=== PATIENT | male | born 1960 | race Caucasian/White ===

== ENCOUNTER 2018-02-12 11:00 | Outpatient (RCR) ==
[2015-07-18 12:18] VITALS: BMI 27.4
--- NOTE | 2018-01-29 14:26 | RS.OPPTEV2 ---
Date of Note: 01/29/18 Visit #: 1 Date of Evaluation: 01/29/18 Payer Source: MEDICARE Treatment Diagnosis: Neck pain History of Condition/Mechanism of Injury:: Patient has a history that includes two neck surgeries. States he has had ongoing neck pain that has progressed over the last three years to the point that he is sore and tender 24 hours a day. He has been attending Pain Management for years. Prior Level of Function.....Patient was independent with: ADL's, Self Care, Ambulation/Mobility, Community Integration/Access Functional Limitations: Sleep, Self Care, ADL's, Reaching, Pushing, Pulling, Lifting, Carrying, Sitting, Bending Current Subjective/complaints:: Patient reports constant neck pain. States pain is mainly across the base of the neck and up the spine. Reports he also has daily headaches. He received trigger point injections last week in the neck and upper traps. States he is unable to tell any difference yet from the injections. States he had injections before and could not tell any benefit. Reports neck pain is increased with activities such as driving, reaching, lifting, ADL's, reading. Reports decreased neck motion, especially to his left. States driving is difficult due to pain and neck stiffness. States to look to his left, he often has to turn his whole body. Report noticing some shakiness in the left hand and sometimes drops things. He is left hand dominant. Reports he occasionally has tingling in his scalp and neck. States "It feels like ants crawling around". States his fingers go numb sometimes while driving. Describes limited sleep due to neck, back, and sciatic nerve pain. States he usually gets 2-3 hours of sleep a night. *Precautions: *Medtronic Stimulation System implant* Medical History Medical History: Hypertension, Arthritis Surgical History: Cervical Spine Surgical History Comments:: Right shoulder surgery X 2, stimulator for pain control March 2015, Cervical spine surgery 2 disc replaced 2007, fusion with metal implant 2013 or 2014. Smoking Status: Former smoker Hx Home Medications: Perocet Patient's Goals: His goal is to get some relief of neck pain. Pain Assessment - Pain Description Pain Location: neck Pain Description: Aching Pain Description: soreness, tender Current Pain Intensity: 4/10 Worst Pain Intensity: 8/10 Functional Outcome Measure Neck Disability Index: 64 - G Codes & Severity Modifier G Codes & Modifier: body position current CL. body position goal CJ Source of G Code score: Neck Disability Index Observation - Observation Inspection: Demonstrates well healed incision to posterior cervical spine. Posture: Forward Head, Rounded Shoulders, Scapula Asymmetry (left scapula elevated), Decreased Cervical Lordosis Handedness: Left - ROM Cervical Spine Range of Motion Limitations: Soft Tissue Tightness, Pain Comments: Cervical extension is approximately 25% of normal range, flexion is WFL's. Rotation to the left 35-40 degrees, to the right 55-60 degrees. Patient reports pain with endrange extension and rotation bilaterally. UE AROM is WFL's with discomfort felt in the neck with ROM above shoulder height. - Strength Cervical Extension: 4 Good Cervical Flexion: 4 Good Cervical Lateral Flexion: 4 Good Comments: UE strength: right UE shoulder 4 to 4+/5, elbow 5/5, wrist 5/5. Left UE shoulder 4+/5, elbow 5/5, wrist extension 4+/5. - Special Tests Foraminal Compression: Negative Left, Negative Right VA Test: Negative Energy Conservation Representative Strength Left Hand Energy Conservation Representative Strength: 50 lbs. Right Hand Energy Conservation Representative Strength: 57 lbs. Dynamometer Testing Position: 2nd Position Palpation Comments:: Moderate increased muscle tone along left upper traps and bilateral SCM at the most superior aspect. Reports tenderness with palpation to the left upper traps and left scalenes. Sensation - Sensation Right Upper Extremity: Intact/Normal Left Upper Extremity: Intact/Normal Additional Comments: Additional Comments: Pec major tight bilaterally. Interventions - Exercise/Activities/Manual Therapy Exercises/Activities: Patient instructed in [facility] to start this weekend of corner stretch (pec stretch), gentle stretching into lateral flexion and rotation. Manual Therapy: NA HOME EXERCISE PROGRAM: corner stretch (pec stretch), gentle stretching into lateral flexion and rotation. - Charges Timed Code Treatment Minutes: 0 Total Treatment Time: 50 mins Procedures billed for this date of service:: EVAL Medium EVALUATION COMPLEXITY LEVEL EVALUATION COMPLEXITY LEVEL: HISTORY: Medium (previous neck sx X2, Hx back pain with stimulator), EXAM OF BODY SYSTEMS: Medium (limited sleep, driving, ADL's), CLINICAL PRESENTATION: Medium, CLINICAL DECISION MAKING: Medium Assessment Assessment: Patient presents to therapy with a diagnosis of neck pain. He reports neck pain that has progressed to the point of being constant. Also reports daily headaches. He exhibits moderate increased muscle tone along the left upper traps and bilateral SCM. AROM is limited to cervical extension and rotation. He reports difficulty sleeping, driving, reading, performing ADL's due to increased neck pain and or limited ROM. He demonstrates potential to benefit from manual therapy, stretching, and postural strengthening and education to reduce his symptoms and improve his tolerance for daily activities. Patient Education: Education of diagnosis, Body/Joint mechanics, Home Exercise Program, Home Safety, Activity Modification, Education of Plan of Care Rehab Potential: Good Short Term Goals Goal #1: Patient independent and compliant with basic HEP. Goal to be met by: 02/12/18 Goal #2: Muscle tone along left upper traps decreased to minimal. Goal to be met by: 02/12/18 Goal #3: Left cervical rotation improved to 45-50 degrees. Goal to be met by: 02/12/18 Goal #4: Headaches decreased to less than daily. Goal to be met by: 02/12/18 Alf Goals Goal #1: Pt knows HEP and to continue exercises after D/C from therapy. Goal to be met by: 03/10/18 Goal #2: Score on Neck Disability Index improved to 39% or less. Goal to be met by: 03/10/18 (SCORE 60) Goal #3: Cervical rotation improved to enable pt to drive with minimal difficulty. Goal to be met by: 03/10/18 Goal #4: Pt to report neck pain to average 5/10 with daily activities. Goal to be met by: 03/10/18 Plan - Treatment to be Provided Procedures: Therapeutic Exercises, Therapeutic Activity, Manual Therapy, Patient Education Modalities: Cryotherapy, Hot Packs - Treatment Plan Frequency: 3 X week Duration: 4 weeks ORDER # VISITS AND/OR THROUGH DATE: 03/10/18 - Treatment Code (1) Neck pain Code(s): M54.2 - CERVICALGIA Comments: M54.2 (2) Other muscle spasm Code(s): M62.838 - OTHER MUSCLE SPASM Comments: M62.838 Muscle spasms of left upper traps and SCM
--- NOTE | 2018-02-01 13:25 | RS.OPPTDN ---
Subjective Date of Note: 02/01/18 Visit #: 2 Date of Evaluation: 01/29/18 Payer Source: MEDICARE Treatment Diagnosis: Neck pain Current Subjective/complaints:: Patient says he has daily HAs. He says his pain is 3-4/10 with percocet 10mg. He reports that he has not tried any heat/ cold with HAs, but feels percocet should help. *Precautions: *Medtronic Stimulation System implant* - Heat/Cryotherapy Treatment: Hot Pack (20 mins cervical supine) Interventions - Exercise/Activities/Manual Therapy Exercises/Activities: Gentle stretching for SB and rotation bilaterally. Patient sits at EOB for shoulder shrugs, scap adduction, and red tband for scap retraction x 10. Patient encouraged to perform improved postural mechanics for home. Total minutes of Exercise: 8 Manual Therapy: Patient receives DTM and Trigger point work to bilateral UT. Also, occipital release. Total minutes of Manual Therapy: 15 HOME EXERCISE PROGRAM: corner stretch (pec stretch), gentle stretching into lateral flexion and rotation. - Charges Timed Code Treatment Minutes: 23 Total Treatment Time: 43 Procedures billed for this date of service:: hp, MT, EX Assessment: Patient presents with mild tenderness and soreness to the bilateral UT with 2 trigger points (1 to each side). He is able to darion and demo ROM passively SB and rotation WFL and with only slight discomfort. He is able to begin light postural strengthening without difficulty. He may benefit from receiving manual therapy and postural strengthening to decrease his pain. Patient Education: Education of diagnosis, Body/Joint mechanics, Home Exercise Program, Education of Plan of Care Short Term Goals Goal #1: Patient independent and compliant with basic HEP. Goal to be met by: 02/12/18 Goal #2: Muscle tone along left upper traps decreased to minimal. Goal to be met by: 02/12/18 Goal #3: Left cervical rotation improved to 45-50 degrees. Goal to be met by: 02/12/18 Goal #4: Headaches decreased to less than daily. Goal to be met by: 02/12/18 Longterm Goals Goal #1: Pt knows HEP and to continue exercises after D/C from therapy. Goal to be met by: 03/10/18 Goal #2: Score on Neck Disability Index improved to 39% or less. Goal to be met by: 03/10/18 (SCORE 60) Goal #3: Cervical rotation improved to enable pt to drive with minimal difficulty. Goal to be met by: 03/10/18 Goal #4: Pt to report neck pain to average 5/10 with daily activities. Goal to be met by: 03/10/18 Plan PLAN OF CARE EXPIRES ON:: 03/10/18 ORDER # VISITS AND/OR THROUGH DATE: 03/10/18 PLAN: TIW to reduce neck pain and PEREZ's
--- NOTE | 2018-02-03 13:08 | RS.OPPTDN ---
Subjective Date of Note: 02/03/18 Visit #: 3 Date of Evaluation: 01/29/18 Payer Source: MEDICARE Treatment Diagnosis: Neck pain Current Subjective/complaints:: Patient says his pain is less. Reports he feels his neck is able to move better than previous session. He denies PEREZ this morning. *Precautions: *Medtronic Stimulation System implant* Pain Assessment - Pain Description Pain Location: tender and tight Pain Description: Tightness, Throbbing - Heat/Cryotherapy Treatment: Hot Pack (20 mins cervical in supine) Interventions - Exercise/Activities/Manual Therapy Exercises/Activities: Gentle stretching for SB and rotation bilaterally. Patient sits at EOB for shoulder shrugs, scap adduction, and red tband for scap retraction, standing bilateral shoulder extension, and bilateral ER x 10. Patient encouraged to perform improved postural mechanics for home. Total minutes of Exercise: 16 Manual Therapy: Patient receives DTM and Trigger point work to bilateral UT. Also, occipital release multiple reps. Total minutes of Manual Therapy: 15 HOME EXERCISE PROGRAM: corner stretch (pec stretch), gentle stretching into lateral flexion and rotation. - Charges Timed Code Treatment Minutes: 31 Total Treatment Time: 51 Procedures billed for this date of service:: hp, mt, ex Assessment: Patient expresses increased flexibility and less tightness/ tenderness to bilateral UT and cervical paraspinals. Patient able to darion progressive postural strengthening and has no presence of PEREZ today. Patient Education: Education of diagnosis, Body/Joint mechanics, Home Exercise Program Patient demonstrates compliance with HEP?: Yes Short Term Goals Goal #1: Patient independent and compliant with basic HEP. Goal to be met by: 02/12/18 Progress towards Goal:: Progressing Goal #2: Muscle tone along left upper traps decreased to minimal. Goal to be met by: 02/12/18 Progress towards Goal:: Progressing Goal #3: Left cervical rotation improved to 45-50 degrees. Goal to be met by: 02/12/18 Progress towards Goal:: Progressing Goal #4: Headaches decreased to less than daily. Goal to be met by: 02/12/18 Group Home Goals Goal #1: Pt knows HEP and to continue exercises after D/C from therapy. Goal to be met by: 03/10/18 Goal #2: Score on Neck Disability Index improved to 39% or less. Goal to be met by: 03/10/18 (SCORE 60) Goal #3: Cervical rotation improved to enable pt to drive with minimal difficulty. Goal to be met by: 03/10/18 Goal #4: Pt to report neck pain to average 5/10 with daily activities. Goal to be met by: 03/10/18 Plan PLAN OF CARE EXPIRES ON:: 03/10/18 ORDER # VISITS AND/OR THROUGH DATE: 03/10/18 PLAN: BIW for decreased neck pain and improved mobility.
--- NOTE | 2018-02-05 14:03 | RS.OPPTDN ---
Subjective Date of Note: 02/05/18 Visit #: 4 Date of Evaluation: 01/29/18 Payer Source: MEDICARE Treatment Diagnosis: Neck pain Current Subjective/complaints:: Patient c/o PEREZ today. He says he does feel his neck mobility is improving, but pain just fluctuates due to history of surgical procedures. *Precautions: *Medtronic Stimulation System implant* - Heat/Cryotherapy Treatment: Hot Pack (cervical x 20 mins in supine) Interventions - Exercise/Activities/Manual Therapy Exercises/Activities: Gentle stretching for SB and rotation bilaterally. Patient sits at EOB for shoulder shrugs, scap adduction, isometric neck retraction and R SB 2x5. Total minutes of Exercise: 6 Manual Therapy: Patient receives DTM and Trigger point work to bilateral UT. Also, occipital release multiple reps. Total minutes of Manual Therapy: 16 HOME EXERCISE PROGRAM: corner stretch (pec stretch), gentle stretching into lateral flexion and rotation. - Charges Timed Code Treatment Minutes: 21 Total Treatment Time: 41 Procedures billed for this date of service:: hp, MT Assessment: Patient presenting with PEREZ today, but does admit improved flexibility to the neck. He demo less tenderness with moderate palpation through MT today and admits improved pain at end of session today. Patient Education: Body/Joint mechanics, Home Exercise Program, Education of Plan of Care Patient demonstrates compliance with HEP?: Yes Short Term Goals Goal #1: Patient independent and compliant with basic HEP. Goal to be met by: 02/12/18 Progress towards Goal:: Progressing Goal #2: Muscle tone along left upper traps decreased to minimal. Goal to be met by: 02/12/18 Progress towards Goal:: Progressing Goal #3: Left cervical rotation improved to 45-50 degrees. Goal to be met by: 02/12/18 Progress towards Goal:: Progressing Goal #4: Headaches decreased to less than daily. Goal to be met by: 02/12/18 Motor Polarizer Goals Goal #1: Pt knows HEP and to continue exercises after D/C from therapy. Goal to be met by: 03/10/18 Goal #2: Score on Neck Disability Index improved to 39% or less. Goal to be met by: 03/10/18 (SCORE 60) Goal #3: Cervical rotation improved to enable pt to drive with minimal difficulty. Goal to be met by: 03/10/18 Goal #4: Pt to report neck pain to average 5/10 with daily activities. Goal to be met by: 03/10/18 Plan PLAN OF CARE EXPIRES ON:: 03/10/18 ORDER # VISITS AND/OR THROUGH DATE: 03/10/18 PLAN: Patient to continue TIW for heat, MT, and therex to the cspine
--- NOTE | 2018-02-08 13:29 | RS.OPPTDN ---
Subjective Date of Note: 02/08/18 Visit #: 5 Date of Evaluation: 01/29/18 Payer Source: MEDICARE Treatment Diagnosis: Neck pain Current Subjective/complaints:: Patient states he feels that he is able to turn his head better. States he does not know why his neck stays so sore and tense. *Precautions: *Medtronic Stimulation System implant* - Heat/Cryotherapy Treatment: Hot Pack (X 20 mins cervical spine) Interventions - Exercise/Activities/Manual Therapy Exercises/Activities: Gentle stretching for SB . Performs scapular retraction with green theraband 15 reps. Total minutes of Exercise: 5 mins Manual Therapy: Patient receives DTM and Trigger point work to bilateral UT. Demonstrates active trigger points along the superior border of the scapula bilaterally. Also received occipital release in supine X 10 mins. Total minutes of Manual Therapy: total 26 mins HOME EXERCISE PROGRAM: corner stretch (pec stretch), gentle stretching into lateral flexion and rotation. - Charges Timed Code Treatment Minutes: 31 mins Total Treatment Time: 51 mins Procedures billed for this date of service:: hp, manual therapy, ex Assessment: Patient with subjective reports of improved cervical rotation. Demonstrates significant muscle guarding and active trigger points in bilateral upper traps. Patient Education: Body/Joint mechanics, Home Exercise Program, Activity Modification Patient demonstrates compliance with HEP?: Yes Short Term Goals Goal #1: Patient independent and compliant with basic HEP. Goal to be met by: 02/12/18 Progress towards Goal:: Progressing Goal #2: Muscle tone along left upper traps decreased to minimal. Goal to be met by: 02/12/18 Progress towards Goal:: Progressing Goal #3: Left cervical rotation improved to 45-50 degrees. Goal to be met by: 02/12/18 Progress towards Goal:: Progressing Goal #4: Headaches decreased to less than daily. Goal to be met by: 02/12/18 Biomedical Engineering Technologist Goals Goal #1: Pt knows HEP and to continue exercises after D/C from therapy. Goal to be met by: 03/10/18 Goal #2: Score on Neck Disability Index improved to 39% or less. Goal to be met by: 03/10/18 (SCORE 60) Goal #3: Cervical rotation improved to enable pt to drive with minimal difficulty. Goal to be met by: 03/10/18 Goal #4: Pt to report neck pain to average 5/10 with daily activities. Goal to be met by: 03/10/18 Plan PLAN OF CARE EXPIRES ON:: 03/10/18 ORDER # VISITS AND/OR THROUGH DATE: 03/10/18 PLAN: progress stretching and stability exercises.
--- NOTE | 2018-02-10 16:21 | RS.OPPTDN ---
Subjective Date of Note: 02/10/18 Visit #: 6 Date of Evaluation: 01/29/18 Payer Source: MEDICARE Treatment Diagnosis: Neck pain Current Subjective/complaints:: Patient says his neck pain is slightly elevated today based on the continued damp weather. He says he does not have a PEREZ presently, but later in the treatment says he may be starting to get a PEREZ. He says he does feel better when he leaves therapy. *Precautions: *Medtronic Stimulation System implant* - Heat/Cryotherapy Treatment: Hot Pack (cervical and upper back in supine x 20 mins) Interventions - Exercise/Activities/Manual Therapy Exercises/Activities: Gentle stretching for SB . Performs scapular retraction with green theraband 15 reps. Cervical retraction isometrics, L and R SB isometrics x 5. Shoulder shrugs x 10. Total minutes of Exercise: 8 Manual Therapy: Patient receives DTM and Trigger point work to bilateral UT. Demonstrates active trigger points along the superior border of the scapula bilaterally. Also received occipital release in supine X 10 mins. Total minutes of Manual Therapy: 16 HOME EXERCISE PROGRAM: corner stretch (pec stretch), gentle stretching into lateral flexion and rotation. - Charges Timed Code Treatment Minutes: 24 Total Treatment Time: 44 Procedures billed for this date of service:: hp, ex, MT Assessment: Patient progressing with slightly reduced neck pain with treatment today, but later did develop light PEREZ. Patient feels symptoms today are related to damp weather. Patient demo improved Cspine ROM to R SB and rotation following MT today. Patient Education: Education of diagnosis, Body/Joint mechanics, Home Exercise Program, Education of Plan of Care Patient demonstrates compliance with HEP?: Yes Short Term Goals Goal #1: Patient independent and compliant with basic HEP. Goal to be met by: 02/12/18 Progress towards Goal:: Progressing Goal #2: Muscle tone along left upper traps decreased to minimal. Goal to be met by: 02/12/18 Progress towards Goal:: Progressing Goal #3: Left cervical rotation improved to 45-50 degrees. Goal to be met by: 02/12/18 Progress towards Goal:: Progressing Goal #4: Headaches decreased to less than daily. Goal to be met by: 02/12/[address] Goals Goal #1: Pt knows HEP and to continue exercises after D/C from therapy. Goal to be met by: 03/10/18 Goal #2: Score on Neck Disability Index improved to 39% or less. Goal to be met by: 03/10/18 (SCORE 60) Goal #3: Cervical rotation improved to enable pt to drive with minimal difficulty. Goal to be met by: 03/10/18 Goal #4: Pt to report neck pain to average 5/10 with daily activities. Goal to be met by: 03/10/18 Plan PLAN OF CARE EXPIRES ON:: 03/10/18 ORDER # VISITS AND/OR THROUGH DATE: 03/10/18 PLAN: Patient to attend TIW for MT/EX for the cervical spine
--- NOTE | 2018-02-12 16:40 | RS.OPPTDN ---
Subjective Date of Note: 02/12/18 Visit #: 7 Date of Evaluation: 01/29/18 Payer Source: MEDICARE Treatment Diagnosis: Neck pain Current Subjective/complaints:: Patient says his pain varies and continues with intermittent PEREZ, although he denies one today. He does say he is able to see significant change in mobility to his neck, especially with turning to the L. He reports being less tender to the R UT. *Precautions: *Medtronic Stimulation System implant* - Heat/Cryotherapy Treatment: Hot Pack (cervical x 20 mins supine) Interventions - Exercise/Activities/Manual Therapy Exercises/Activities: Gentle stretching for SB . Performs scapular retraction with green theraband 15 reps. 1# wand for bilateral shoulder flexion and R shoulder ABD x 10. Cervical retraction isometrics, L and R SB isometrics x 5. Shoulder shrugs x 10. Total minutes of Exercise: 14 Manual Therapy: Patient receives DTM and Trigger point work to bilateral UT. Demonstrates active trigger points along the superior border of the scapula bilaterally. Also received occipital release in supine X 12 mins. Total minutes of Manual Therapy: 12 HOME EXERCISE PROGRAM: corner stretch (pec stretch), gentle stretching into lateral flexion and rotation. - Charges Timed Code Treatment Minutes: 26 Total Treatment Time: 46 Procedures billed for this date of service:: hp, MT, EX Assessment: Patient demo improved L SB and Rotation compared to eval date with decreased tenderness to mod palpation during MT to the R UT. He continues with mild to moderate pain and intermittent HAs, but does admit general improvement from PT. Patient Education: Body/Joint mechanics, Home Exercise Program, Education of Plan of Care Patient demonstrates compliance with HEP?: Yes Short Term Goals Goal #1: Patient independent and compliant with basic HEP. Goal to be met by: 02/12/18 Progress towards Goal:: Progressing Goal #2: Muscle tone along left upper traps decreased to minimal. Goal to be met by: 02/12/18 Progress towards Goal:: Progressing Goal #3: Left cervical rotation improved to 45-50 degrees. Goal to be met by: 02/12/18 Progress towards Goal:: Progressing Goal #4: Headaches decreased to less than daily. Goal to be met by: 02/12/18 Semiconductor Dies Loader Goals Goal #1: Pt knows HEP and to continue exercises after D/C from therapy. Goal to be met by: 03/10/18 Goal #2: Score on Neck Disability Index improved to 39% or less. Goal to be met by: 03/10/18 (SCORE 60) Goal #3: Cervical rotation improved to enable pt to drive with minimal difficulty. Goal to be met by: 03/10/18 Goal #4: Pt to report neck pain to average 5/10 with daily activities. Goal to be met by: 03/10/18 Plan PLAN OF CARE EXPIRES ON:: 03/10/18 ORDER # VISITS AND/OR THROUGH DATE: 03/10/18 PLAN: Patient to continue TIW for MT and therex to improve cervical ROM, muscle guarding, and pain.
== END 2018-02-13 ==
PROVIDERS: ATTEND Pain Medicine Interventional Pain Medicine
DX: M54.2 Cervicalgia (principal)

== ENCOUNTER 2018-03-05 11:00 | Outpatient (RCR) ==
[2015-07-18 12:18] VITALS: BMI 27.4
--- NOTE | 2018-02-15 12:21 | RS.OPPTDN ---
Subjective Date of Note: 02/15/18 Visit #: 8 Date of Evaluation: 01/29/18 Payer Source: MEDICARE Treatment Diagnosis: Neck pain Current Subjective/complaints:: Patient reports the therapy continues to help relieve the neck pain ,along with better cervical rotation to the L. *Precautions: *Medtronic Stimulation System implant* Pain Assessment - Pain Description Pain Description: Chronic - Heat/Cryotherapy Treatment: Hot Pack (20 mins. prior to exercises and manual therapy.) Interventions - Exercise/Activities/Manual Therapy Exercises/Activities: Ther ex. in supine for cervical rotation ,lateral flexion ,chin tucks,with static stretches at end range of each motion. Total minutes of Exercise: 15 Manual Therapy: Patient receives DTM and Trigger point work to bilateral UT. Demonstrates active trigger points along the superior border of the scapula bilaterally. Also received occipital release in supine X 15 mins. Total minutes of Manual Therapy: 15 HOME EXERCISE PROGRAM: corner stretch (pec stretch), gentle stretching into lateral flexion and rotation. - Charges Timed Code Treatment Minutes: 30 Total Treatment Time: 50 Procedures billed for this date of service:: hp,manual,ex Assessment: Patient reports improved flexibility ,but the cervical rotation continues to be the most difficult ,as compared to other motions.He has moderate tenderness present along the medial borders of scapulae. Patient Education: Education of diagnosis, Body/Joint mechanics, Home Exercise Program, Home Safety, Activity Modification, Education of Plan of Care Patient demonstrates compliance with HEP?: Yes Short Term Goals Goal #1: Patient independent and compliant with basic HEP. Goal to be met by: 02/12/18 Progress towards Goal:: Progressing Goal #2: Muscle tone along left upper traps decreased to minimal. Goal to be met by: 02/12/18 Progress towards Goal:: Progressing Goal #3: Left cervical rotation improved to 45-50 degrees. Goal to be met by: 02/12/18 Progress towards Goal:: Progressing Goal #4: Headaches decreased to less than daily. 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 Goal to be met by: 03/10/18 Progress towards goal: Progressing Goal #2: Score on Neck Disability Index improved to 39% or less. Goal to be met by: 03/10/18 (SCORE 60) Goal #3: Cervical rotation improved to enable pt to drive with minimal difficulty. Goal to be met by: 03/10/18 Goal #4: Pt to report neck pain to average 5/10 with daily activities. Goal to be met by: 03/10/18 Plan PLAN OF CARE EXPIRES ON:: 03/10/18 ORDER # VISITS AND/OR THROUGH DATE: 03/10/18 PLAN: Cont treatment to improve cervical ROM with less pain ,decrease frequency of headaches.
--- NOTE | 2018-02-17 12:56 | RS.OPPTDN ---
Subjective Date of Note: 02/17/18 Visit #: 9 Date of Evaluation: 01/29/18 Payer Source: MEDICARE Treatment Diagnosis: Neck pain Current Subjective/complaints:: Patient reports muscle soreness ,but no sharp pain present currently.The rotation to the L is generally more difficult than to the R. *Precautions: *Medtronic Stimulation System implant* Pain Assessment - Pain Description Pain Description: Tightness Pain Description: muscle soreness Current Pain Intensity: 4 - Heat/Cryotherapy Treatment: Hot Pack (20 mns. prior to exercises and manual therapy.) Interventions - Exercise/Activities/Manual Therapy Exercises/Activities: Ther ex. in supine for cervical rotation ,lateral flexion ,chin tucks,with static stretches at end range of each motion. Total minutes of Exercise: 15 Manual Therapy: Patient receives DTM and Trigger point work to bilateral UT. Demonstrates active trigger points along the superior border of the scapula bilaterally. Also received occipital release in supine . Total minutes of Manual Therapy: 15 HOME EXERCISE PROGRAM: corner stretch (pec stretch), gentle stretching into lateral flexion and rotation. - Charges Timed Code Treatment Minutes: 30 Total Treatment Time: 50 Procedures billed for this date of service:: hp,ex ,manual therapy Assessment: Patient has improved rotation to the L today after exercises,but requires more reps. of stretch to achieve the same motion as he has with R rotation.He reports less intensity of headaches,but they still occur daily.He is attentive to recommendations of the therapy staff. Patient Education: Body/Joint mechanics, Home Exercise Program, Education of Plan of Care Patient demonstrates compliance with HEP?: Yes Short Term Goals Goal #1: Patient independent and compliant with basic HEP. Goal to be met by: 02/12/18 Progress towards Goal:: Progressing Goal #2: Muscle tone along left upper traps decreased to minimal. Goal to be met by: 02/12/18 Progress towards Goal:: Progressing Goal #3: Left cervical rotation improved to 45-50 degrees. Goal to be met by: 02/12/18 Progress towards Goal:: Progressing Goal #4: Headaches decreased to less than daily. Goal to be met by: 02/12/18 (less intense,but still daily) Progress towards Goal:: Progressing (less severe at times) Custodial Goals Goal #1: Pt knows HEP and to continue exercises after D/C from therapy. Goal to be met by: 03/10/18 Progress towards goal: Progressing Goal #2: Score on Neck Disability Index improved to 39% or less. Goal to be met by: 03/10/18 (SCORE 60) Goal #3: Cervical rotation improved to enable pt to drive with minimal difficulty. Goal to be met by: 03/10/18 Goal #4: Pt to report neck pain to average 5/10 with daily activities. Goal to be met by: 03/10/18 Progress towards goal: Progressing Plan PLAN OF CARE EXPIRES ON:: 03/10/18 ORDER # VISITS AND/OR THROUGH DATE: 03/10/18 PLAN: Continue treatment to increase cervical ROM with less pain and less frequent of headaches.
--- NOTE | 2018-02-19 13:07 | RS.OPPTDN ---
Subjective Date of Note: 02/19/18 Visit #: 10 Date of Evaluation: 01/29/18 Payer Source: MEDICARE Treatment Diagnosis: Neck pain Current Subjective/complaints:: Patient pleased with his progress,feels the therapy is helping .He reports less intensity of headaches ,improved cervical rotation , also. *Precautions: *Medtronic Stimulation System implant* Pain Assessment - Pain Description Pain Location: cervical/UT's Pain Description: Chronic Pain Description: muscle soreness Current Pain Intensity: 2/10 Worst Pain Intensity: 4 two days ago - Heat/Cryotherapy Treatment: Hot Pack (20 mins. prior to exercise and manual therapy) Interventions - Exercise/Activities/Manual Therapy Exercises/Activities: Ther ex. in sitting for cervical rotation ,lateral flexion ,chin tucks,with static stretches at end range of each motion.ROM measurements taken today , also. Total minutes of Exercise: 15 Manual Therapy: Patient receives DTM and Trigger point work to bilateral UT. Demonstrates active trigger points along the superior border of the scapula bilaterally. Also received occipital release in supine . Total minutes of Manual Therapy: 25 HOME EXERCISE PROGRAM: corner stretch (pec stretch), gentle stretching into lateral flexion and rotation. - Charges Timed Code Treatment Minutes: 40 Total Treatment Time: 60 Procedures billed for this date of service:: hp,ex ,manual therapy 2 Assessment: Patient progressing ,has increased cervical motion with less pain, along with less intense headaches.He is compliant to HEP and recommendations for pain management. Patient Education: Body/Joint mechanics, Education of Plan of Care Patient demonstrates compliance with HEP?: Yes Short Term Goals Goal #1: Patient independent and compliant with basic HEP. Goal to be met by: 02/12/18 Progress towards Goal:: Partially Met Goal #2: Muscle tone along left upper traps decreased to minimal. Goal to be met by: 02/12/18 Progress towards Goal:: Progressing Goal #3: Left cervical rotation improved to 45-50 degrees. Goal to be met by: 02/12/18 Progress towards Goal:: Met Goal #4: Headaches decreased to less than daily. Goal to be met by: 02/12/18 (less intense,but still daily) Progress towards Goal:: Progressing (less severe at times) Intermediate Goals Goal #1: Pt knows HEP and to continue exercises after D/C from therapy. Goal to be met by: 03/10/18 Progress towards goal: Progressing Goal #2: Score on Neck Disability Index improved to 39% or less. Goal to be met by: 03/10/18 Progress towards goal: Progressing Goal #3: Cervical rotation improved to enable pt to drive with minimal difficulty. Goal to be met by: 03/10/18 Progress towards goal: Progressing Goal #4: Pt to report neck pain to average 5/10 with daily activities. Goal to be met by: 03/10/18 Progress towards goal: Progressing Plan PLAN OF CARE EXPIRES ON:: 03/10/18 ORDER # VISITS AND/OR THROUGH DATE: 03/10/18 PLAN: Continue PT to reduce frequency of headaches,improve cervical motion , especially rotation,enabling for him to drive with less discomfort.
--- NOTE | 2018-02-22 12:06 | RS.OPPTDN ---
Subjective Date of Note: 02/22/18 Visit #: 11 Date of Evaluation: 01/29/18 Payer Source: MEDICARE Treatment Diagnosis: Neck pain Current Subjective/complaints:: Patient reports less pain today,continues to feel the therapy is helping.His headaches have been , "very mild " the past couple of days. *Precautions: *Medtronic Stimulation System implant* Pain Assessment - Pain Description Pain Description: Dull Current Pain Intensity: 2 - Heat/Cryotherapy Treatment: Hot Pack (20 mins. to cervical prior to exercise and manual therapy) Interventions - Exercise/Activities/Manual Therapy Exercises/Activities: Ther ex. in supine for cervical rotation ,lateral flexion ,chin tucks,with static stretches at end range of each motion.Gentle manual distraction combined with occipital release . Total minutes of Exercise: 15 Manual Therapy: Patient receives DTM and Trigger point work to bilateral UT. Demonstrates active trigger points along the superior border of the scapula bilaterally. Also received occipital release in supine . Total minutes of Manual Therapy: 15 HOME EXERCISE PROGRAM: corner stretch (pec stretch), gentle stretching into lateral flexion and rotation. - Charges Timed Code Treatment Minutes: 30 Total Treatment Time: 50 Procedures billed for this date of service:: hp,ex, manual therapy Assessment: Patient continues to report less difficulty with cervical otion , especially with rotation to the L.He has less tenderness in the trigger points along the UT and medial borders of L scapula. Patient Education: Education of diagnosis, Body/Joint mechanics, Home Exercise Program, Home Safety, Activity Modification, Education of Plan of Care Patient demonstrates compliance with HEP?: Yes Short Term Goals Goal #1: Patient independent and compliant with basic HEP. Goal to be met by: 02/12/18 Progress towards Goal:: Partially Met Goal #2: Muscle tone along left upper traps decreased to minimal. Goal to be met by: 02/12/18 Progress towards Goal:: Progressing Goal #3: Left cervical rotation improved to 45-50 degrees. Goal to be met by: 02/12/18 Progress towards Goal:: Met Goal #4: Headaches decreased to less than daily. 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 Goal to be met by: 03/10/18 Progress towards goal: Progressing Goal #2: Score on Neck Disability Index improved to 39% or less. Goal to be met by: 03/10/18 Progress towards goal: Progressing Goal #3: Cervical rotation improved to enable pt to drive with minimal difficulty. Goal to be met by: 03/10/18 Progress towards goal: Progressing Goal #4: Pt to report neck pain to average 5/10 with daily activities. Goal to be met by: 03/10/18 Progress towards goal: Progressing Plan PLAN OF CARE EXPIRES ON:: 03/10/18 ORDER # VISITS AND/OR THROUGH DATE: 03/10/18 PLAN: Continue PT to increase ROM ,decrease frequency of headaches.
--- NOTE | 2018-02-24 16:36 | RS.PTSUM ---
Progress Note/Summary Date of Note: 02/19/18 Date of Evaluation: 01/29/18 Number of Visits: 10 Reporting Period for this Progress Note: 01/29/18 through 02/19/18 Current Complaints/Gains: Patient is pleased with progress. Reports less intense headaches. He states his neck movement has improved to his left. Rates pain 2/10 and describes it as muscle soreness. Objective Measurements/Presentation: Cervical flexion WFL's, left rotation 47- 51 degrees, right rotation to 60-62 degrees. G Codes: body position current ck. body position goal CJ Source of G Code Score: Neck disability index score today of 56, improvement in less PEREZ pain. - Short Term Goals Goal #1: Patient independent and compliant with basic HEP. Goal to be met by: 02/26/18 Progress towards Goal:: Progressing Goal #2: Muscle tone along left upper traps decreased to minimal. Goal to be met by: 02/26/18 Progress towards Goal:: Progressing Goal #3: Left cervical rotation improved to 45-50 degrees. Goal to be met by: 02/26/18 Progress towards Goal:: Progressing Goal #4: Headaches decreased to less than daily. 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 Goal to be met by: 03/10/18 Progress towards goal: Progressing Goal #2: Score on Neck Disability Index improved to 39% or less. Goal to be met by: 03/10/18 (SCORE 60) Progress towards goal: Not Met Goal #3: Cervical rotation improved to enable pt to drive with minimal difficulty. Goal to be met by: 03/10/18 Progress towards goal: Not Met Goal #4: Pt to report neck pain to average 5/10 with daily activities. Goal to be met by: 03/10/18 Progress towards goal: Progressing - Assessment Assessment of Improvement/Progress: Pt with reports of less intensity with headaces. He has more cervical rotation. He demonstrates potential to gain more ROM and relief of pain. Summary: Patient has made progress towards goals., Patient demonstrates potential to gain increased function with therapy - Plan Plan: Will request continuation of therapy sessions. Frequency: 2 X week Duration: 2 weeks PLAN OF CARE EXPIRES ON:: 03/10/18 ORDER # VISITS AND/OR THROUGH DATE: 03/10/18
--- NOTE | 2018-02-26 11:59 | RS.OPPTDN ---
Subjective Date of Note: 02/26/18 Visit #: 12 Date of Evaluation: 01/29/18 Payer Source: MEDICARE Treatment Diagnosis: Neck pain Current Subjective/complaints:: Patient reports feeling better,no headache the past couple of days. *Precautions: *Medtronic Stimulation System implant* Pain Assessment - Pain Description Pain Location: cervical Pain Description: soreness only ,no sharp pain - Heat/Cryotherapy Treatment: Hot Pack (20 mins. prior to exercises and manual therapy) Interventions - Exercise/Activities/Manual Therapy Exercises/Activities: Ther ex. in supine for cervical rotation ,lateral flexion ,chin tucks,with static stretches at end range of each motion.Gentle manual distraction combined with occipital release . Total minutes of Exercise: 15 Manual Therapy: Patient receives DTM and Trigger point work to bilateral UT. Demonstrates active trigger points along the superior border of the scapula bilaterally. Also received occipital release in supine . Total minutes of Manual Therapy: 15 HOME EXERCISE PROGRAM: corner stretch (pec stretch), gentle stretching into lateral flexion and rotation. - Charges Timed Code Treatment Minutes: 30 Total Treatment Time: 50 Procedures billed for this date of service:: hp,ex,manual therapy Assessment: Progressing well [facility],less intensity and less frequency of headaches,improved cervical rotation. Patient Education: Body/Joint mechanics, Home Exercise Program, Education of Plan of Care Patient demonstrates compliance with HEP?: Yes Short Term Goals Goal #1: Patient independent and compliant with basic HEP. Goal to be met by: 02/26/18 Progress towards Goal:: Partially Met Goal #2: Muscle tone along left upper traps decreased to minimal. Goal to be met by: 02/26/18 Progress towards Goal:: Progressing Goal #3: Left cervical rotation improved to 45-50 degrees. Goal to be met by: 02/26/18 Progress towards Goal:: Met Goal #4: Headaches decreased to less than daily. Goal to be met by: 02/26/18 (no headaches the past two days) Progress towards Goal:: Met (less severe at times) Group Home Goals Goal #1: Pt knows HEP and to continue exercises after D/C from therapy. Goal to be met by: 03/10/18 Progress towards goal: Partially Met Goal #2: Score on Neck Disability Index improved to 39% or less. Goal to be met by: 03/10/18 (SCORE 60) Progress towards goal: Not Met Goal #3: Cervical rotation improved to enable pt to drive with minimal difficulty. Goal to be met by: 03/10/18 Progress towards goal: Progressing Goal #4: Pt to report neck pain to average 5/10 with daily activities. Goal to be met by: 03/10/18 Progress towards goal: Progressing Plan PLAN OF CARE EXPIRES ON:: 03/10/18 ORDER # VISITS AND/OR THROUGH DATE: 03/10/18 PLAN: Continue PT to achieve funtional cervical ROM consistently,reduce pain and headaches.
--- NOTE | 2018-03-01 12:06 | RS.OPPTDN ---
Subjective Date of Note: 03/01/18 Visit #: 13 Date of Evaluation: 01/29/18 Payer Source: MEDICARE Treatment Diagnosis: Neck pain Current Subjective/complaints:: Patient reports having a good weekend,pleased with his progress.He contiunues to have less headaches. *Precautions: *Medtronic Stimulation System implant* Pain Assessment - Pain Description Pain Description: Chronic Pain Description: soreness only - Heat/Cryotherapy Treatment: Hot Pack (20 mins. prior to manual therapy.) Interventions - Exercise/Activities/Manual Therapy Exercises/Activities: HEP review only today,as he reports doing them without difficulty. Total minutes of Exercise: 0 Manual Therapy: Patient receives DTM and trigger point therapy to cervical, upper traps,and medial borders of scapulae. Total minutes of Manual Therapy: 25 HOME EXERCISE PROGRAM: corner stretch (pec stretch), gentle stretching into lateral flexion and rotation. - Charges Timed Code Treatment Minutes: 25 Total Treatment Time: 45 Procedures billed for this date of service:: hp,manual therapy Assessment: Progressing well toward rehab goals,continues to report less frequent and less intense headaches.His cervical motion is functional ,has soreness and tightness present,more prevalent in the AM ,per patient report.He has good understanding of HEP. Patient Education: Education of diagnosis, Body/Joint mechanics, Home Exercise Program, Home Safety, Activity Modification, Education of Plan of Care Patient demonstrates compliance with HEP?: Yes Short Term Goals Goal #1: Patient independent and compliant with basic HEP. Goal to be met by: 02/26/18 Progress towards Goal:: Met Goal #2: Muscle tone along left upper traps decreased to minimal. Goal to be met by: 02/26/18 Progress towards Goal:: Partially Met Goal #3: Left cervical rotation improved to 45-50 degrees. Goal to be met by: 02/26/18 Progress towards Goal:: Met Goal #4: Headaches decreased to less than daily. 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 Goal to be met by: 03/10/18 Progress towards goal: Met Goal #2: Score on Neck Disability Index improved to 39% or less. Goal to be met by: 03/10/18 (SCORE 60) Progress towards goal: Progressing Goal #3: Cervical rotation improved to enable pt to drive with minimal difficulty. Goal to be met by: 03/10/18 Progress towards goal: Partially Met Goal #4: Pt to report neck pain to average 5/10 with daily activities. Goal to be met by: 03/10/18 Progress towards goal: Partially Met Plan PLAN OF CARE EXPIRES ON:: 03/10/18 ORDER # VISITS AND/OR THROUGH DATE: 03/10/18 PLAN: Continue PT to achieve PLOF ,with minimal or no cervical pain/headaches.
--- NOTE | 2018-03-05 12:05 | RS.OPPTDN ---
Subjective Date of Note: 03/05/18 Visit #: 14 Date of Evaluation: 01/29/18 Payer Source: MEDICARE Treatment Diagnosis: Neck pain Current Subjective/complaints:: Pleased with progress,mostly has stiffness in the neck,but less severe headaches,and less frequent.He has good understanding of HEP. *Precautions: *Medtronic Stimulation System implant* Pain Assessment - Pain Description Pain Location: cervical Pain Description: soreness and stiffness - Heat/Cryotherapy Treatment: Hot Pack (20 mins. prior to exercises) Interventions - Exercise/Activities/Manual Therapy Exercises/Activities: HEP review today,and AROM of chin tucks,lateral flexion, extension and rotation to L and R.Postural exercises reviewed of scapular pro/ retraction. Total minutes of Exercise: 20 Manual Therapy: Patient receives DTM and trigger point therapy to cervical, upper traps,and medial borders of scapulae. Total minutes of Manual Therapy: 0 HOME EXERCISE PROGRAM: corner stretch (pec stretch), gentle stretching into lateral flexion and rotation. - Charges Timed Code Treatment Minutes: 20 Total Treatment Time: 40 Procedures billed for this date of service:: hp,ex Assessment: [place] has progressed well,with improved cervical motion ,less intense and less frequent headaches.He has significant improvement with L cervical rotation ,as compared to approximately 2 weeks ago.He agrees with D/C plan today. Patient Education: Body/Joint mechanics, Home Exercise Program, Home Safety, Activity Modification, Education of Plan of Care Patient demonstrates compliance with HEP?: Yes Short Term Goals Goal #1: Patient independent and compliant with basic HEP. Goal to be met by: 02/26/18 Progress towards Goal:: Met Goal #2: Muscle tone along left upper traps decreased to minimal. Goal to be met by: 02/26/18 Progress towards Goal:: Met Goal #3: Left cervical rotation improved to 45-50 degrees. Goal to be met by: 02/26/18 Progress towards Goal:: Met Goal #4: Headaches decreased to less than daily. Goal to be met by: 02/26/18 (no headaches the past two days) Progress towards Goal:: Met (less severe at times) Alf Goals Goal #1: Pt knows HEP and to continue exercises after D/C from therapy. Goal to be met by: 03/10/18 Progress towards goal: Met Goal #2: Score on Neck Disability Index improved to 39% or less. Goal to be met by: 03/10/18 (48) Progress towards goal: Progressing Goal #3: Cervical rotation improved to enable pt to drive with minimal difficulty. Goal to be met by: 03/10/18 Progress towards goal: Met Goal #4: Pt to report neck pain to average 5/10 with daily activities. Goal to be met by: 03/10/18 Progress towards goal: Met Plan PLAN OF CARE EXPIRES ON:: 03/10/18 ORDER # VISITS AND/OR THROUGH DATE: 03/10/18 PLAN: D/c due to good progress.
--- NOTE | 2018-03-15 09:38 | RS.OPPTDC ---
Date of Discharge: 03/05/18 Date of Evaluation: 01/29/18 Number of Visits: 14 Treatment Diagnosis: Neck pain Current Complaints/Gains: Mr. Patino reports much less pain intensity of headaches. He is pleased with his progress with therapy. States he occasionally goes a couple of days without a headache. Functional Outcome Measure - G Codes & Severity Modifier G Codes & Modifier: body position Goal CJ. body position D/C CK Source of G Code score: Neck Disability Index 48 , improved in areas of pain intensity and frequency of headaches. Interventions - Exercise/Activities/Manual Therapy Exercises/Activities: NA Manual Therapy: Na HOME EXERCISE PROGRAM: corner stretch (pec stretch), gentle stretching into lateral flexion and rotation. - Objective Findings Observations,measurements,etc.: Cervical AROM WFL's into flexion, extension, and lateral flexion. Left rotation to 69 degrees, right rotation to 75 degrees. - Charges Timed Code Treatment Minutes: NA Total Treatment Time: NA Procedures billed for this date of service:: NA Assessment Assessment: Mr. Patino reports and has shown great improvement with therapy. He is pleased on the amount his headache frequency and intensity have decreased. He has shown improvement in postural awareness and improved cervical AROM. Short Term Goals Goal #1: Patient independent and compliant with basic HEP. Goal to be met by: 02/26/18 Progress towards Goal:: Met Goal #2: Muscle tone along left upper traps decreased to minimal. Goal to be met by: 02/26/18 Progress towards Goal:: Met Goal #3: Left cervical rotation improved to 45-50 degrees. Goal to be met by: 02/26/18 Progress towards Goal:: Met Goal #4: Headaches decreased to less than daily. Goal to be met by: 02/26/18 (no headaches the past two days) Progress towards Goal:: Met (less severe at times) Director Of Learning Goals Goal #1: Pt knows HEP and to continue exercises after D/C from therapy. Goal to be met by: 03/10/18 Progress towards goal: Met Goal #2: Score on Neck Disability Index improved to 39% or less. Goal to be met by: 03/10/18 (48) Progress towards goal: Not Met Goal #3: Cervical rotation improved to enable pt to drive with minimal difficulty. Goal to be met by: 03/10/18 Progress towards goal: Met Goal #4: Pt to report neck pain to average 5/10 with daily activities. Goal to be met by: 03/10/18 Progress towards goal: Met Plan Reason for Discharge:: Maximum Potential Met
== END 2018-03-15 23:59 ==
PROVIDERS: ATTEND Pain Medicine Interventional Pain Medicine
DX: M54.2 Cervicalgia (principal); M62.838 Other muscle spasm

== ENCOUNTER 2018-05-22 08:55 | Emergency (ER) | payer OTHER ==
[2018-05-22 08:58] VITALS: BP 113/85; TEMP 97.7; BMI 27.3
--- NOTE | 2018-05-22 09:14 | ED.PDOC ---
General ED Provider: Dr. VANDANA MARTIN Chief Complaint: Sore Throat Stated Complaint: CC: Sore Throat. HPI: 57 y/o Cauc Male presents with a severe throat and states there is a white patch on the Rt side of my tonsil. Generalized sore throat. Associated fever and chills. Denies nausea or vomiting. 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 Time Seen by Physician: 09:10 Mode of Arrival: Walk-In Information Source: Patient Exam Limitations: No limitations Primary Care Provider: VANDANA DAY Nursing and Triage Documentation Reviewed and Agree: Yes (sore throat with white patches. fever off and on) Does patient meet sepsis criteria?: No System Inflammatory Response Syndrome: Not Applicable Sepsis Protocol: For patient's 13 years and over: Temp is 96.8 and below OR 101 and greater Pulse >90 BPM Resp >20/minute Acutely Altered Mental Status Are patient's symptoms suggestive of a new infection, such as: -Pneumonia -Skin, Soft Tissue -Endocarditis -UTI -Bone, Joint Infection -Implantable Device -Acute Abdominal Infection -Wound Infection -Meningitis -Blood Stream Catheter Infection -Unknown EENT Complaint Exam - Throat Complaint/Exam Onset/Duration: Last night Symptoms Are: Still present Timimg: Constant Initial Severity: Severe Current Severity: Moderate Aggravating: Reports: Eating Alleviating: Reports: None Associated Signs and Symptoms: Reports: Fever, Dysphagia Uvula Midline: Yes Meghan-tonsillar Fluctuence: Yes Scarlatinaform Rash Present: No Lesions: Absent: Lip, Gums, Tongue, Buccal Mucosa Exanthem: Absent: Lip, Gums, Tongue, Buccal Mucosa Stridor Present: No Sinus Tenderness Present: No Tonsillar Hypertrophy Present: Yes Tonsillar Exudate Present: Yes Meghan-tonsillar Swelling Present: Yes Adenopathy Present: Yes Splenomegaly Present: No Differential Diagnoses: Pharyngitis, Tonsillitis Review of Systems - Review Of Systems Constitutional: Reports: Chills, Fever, Malaise Eyes: Reports: No symptoms Ears, Nose, Mouth, Throat: Reports: Throat pain Respiratory: Reports: No symptoms Cardiac: Reports: No symptoms GI: Reports: No symptoms : Reports: No symptoms Musculoskeletal: Reports: No symptoms Skin: Reports: No symptoms Neurological: Reports: No symptoms Endocrine: Reports: No symptoms Hematologic/Lymphatic: Reports: No symptoms All Other Systems: Reviewed and Negative Past Medical History - Past Medical History Previously Healthy: Yes Endocrine: Reports: Hypothyroid, Dyslipidemia Cardiovascular: Reports: Hypertension Respiratory: Reports: None Hematological: Reports: None Gastrointestinal: Reports: None Genitourinary: Reports: None Neuro/Psych: Reports: None Musculoskeletal: Reports: Other Cancer: Reports: None - Surgical History General Surgical History: Reports: None - Family History Family History: Reports: None - Social History Smoking Status: Former smoker Hx Substance Use: No Alcohol Screening: None Physical Exam - Physical Exam Appearance: Well-appearing, No pain distress, Well-nourished Ill-appearing: Mild Pain Distress: None Eyes: BEATRIZ, EOMI, Conjunctiva clear ENT: Ears normal, Nose normal, Erythema, Exudate Neck: Supple (pos rt cervical and subtonsillar adenopathy) Respiratory: Airway patent, Breath sounds clear, Breath sounds equal, Respirations nonlabored Cardiovascular: RRR, Pulses normal, No rub, No murmur GI/: Soft, Nontender, No masses, Bowel sounds normal, No Organomegaly Musculoskeletal: Normal strength, ROM intact, No edema, No calf tenderness Skin: Warm, Dry, Normal color Neurological: Sensation intact, Motor intact, Reflexes intact, Cranial nerves intact, Alert, Oriented Psychiatric: Affect appropriate, Mood appropriate Re-Evaluation - Re-Evaluation Time of Re-Evaluation: 10:20 Status: Improved Vital Signs Stable: Yes Pain Level: 6/10 Appearance: NAD Lungs: Clear Skin: Warm and Dry Neuro: Alert and Oriented X3 CV: RRR Critical Care Note - Critical Care Note Total Time (mins): 0 Course - Course Hematology/Chemistry: 05/22/18 09:15 05/22/18 09:15 Vital Signs: Temp Pulse Resp BP Pulse Ox 05/22/18 08:56 97.7 F 73 18 113/85 98 Departure - Departure Time of Disposition: 10:30 Disposition: HOME SELF-CARE Discharge Problem: Tonsillitis with exudate Instructions: Tonsillitis (ED) Condition: Good Pt referred to PMD for follow-up: Yes (as needed in next week if no improvement) IPMP verified?: No Allergies/Adverse Reactions: Allergies cyclobenzaprine HCl [From Flexeril] Adverse Reaction (Verified 05/22/18 08:58) Home Medications: Ambulatory Orders Levothyroxine Sodium [Synthroid] 0.075 mcg PO DAILY 01/16/15 Oxycodone HCl/Acetaminophen [Oxycodone-Acetaminophen 10-325] 1 tab PO BID Pravastatin Sodium [Pravachol] 40 mg PO DAILY 01/16/15 Duloxetine HCl [Cymbalta] 60 mg PO DAILY 04/27/18 Amlodipine Besylate [Norvasc] 10 mg PO DAILY #10 tablet 04/29/18 Buspirone HCl [Buspar] 15 mg PO DAILY tablet 04/29/18 Losartan Potassium 100 mg PO DAILY 10 Days #10 tablet 04/29/18 Azithromycin [Zithromax] 250 mg PO DAILY #6 tablet 05/22/18 Metoprolol Tartrate [Lopressor] 50 mg PO DAILY 05/22/18 Omeprazole Magnesium [Prilosec Otc] 20 mg PO DAILY 05/22/18 Disposition Discussed With: Patient
== END 2018-05-22 11:13 | disposition home or self-care (01) ==
LOC: ED 08:55
DX: J03.90 Acute tonsillitis, unspecified (principal)
CPT/HCPCS: 36415; 80053; 85025; 87651; 99283